=== PATIENT | female | born 1995 ===

== ENCOUNTER 2017-06-11 23:32 | Emergency (ER) | payer OTHER ==
[2017-06-12 00:25] VITALS: BP 118/86
[2017-06-12] MEDS ORDERED: MOTRIN PO ONE (05:23)
--- NOTE | 2017-06-12 05:30 | Emergency Department Report ---
ED Headache HPI - General Chief Complaint: Fever Stated Complaint: BODY PAIN Time Seen by Provider: 06/12/17 05:21 - History of Present Illness Initial Comments: 21-year-old female comes in complaining of a headache 3 days. Patient reports that she vomited on Thursday. She denies any change in vision she denies any nausea has no abdominal pains she reports a decreased appetite no fever no chills no cough no runny nose no nasal congestion no sore throat no eye drainage. Patient has no past medical history she currently takes medication does not know the names. She has no primary care provider. Allergies/Adverse Reactions: Allergies No Known Allergies Allergy (Unverified 06/12/17 00:20) Home Medications: Ambulatory Orders Ibuprofen [Motrin 600 MG tab] 600 mg PO Q8H PRN #30 tablet 06/12/17 ED Review of Systems ROS: Stated complaint: BODY PAIN Other details as noted in HPI Constitutional: denies: chills, fever Eyes: denies: eye pain, eye discharge, vision change ENT: denies: ear pain, throat pain Respiratory: denies: cough, shortness of breath, wheezing Cardiovascular: denies: chest pain, palpitations Endocrine: no symptoms reported Gastrointestinal: vomiting (1 time on Thursday), other (decreased appetite). denies: abdominal pain, nausea, diarrhea Genitourinary: denies: urgency, dysuria, discharge Musculoskeletal: denies: back pain, joint swelling, arthralgia Skin: denies: rash, lesions Neurological: denies: headache (3 days), weakness, paresthesias Psychiatric: denies: anxiety, depression Hematological/Lymphatic: denies: easy bleeding, easy bruising ED Past Medical Hx - Past Medical History Previous Medical History?: No - Surgical History Past Surgical History?: No - Social History Smoking Status: Never Smoker Substance Use Type: None - Medications Home Medications: Home Medications Medication Instructions Recorded Confirmed Last Taken Type Ibuprofen [Motrin 600 MG tab] 600 mg PO Q8H PRN #30 tablet 06/12/17 Unknown Rx ED Physical Exam - General Limitations: No Limitations General appearance: alert, in no apparent distress - Head Head exam: Present: atraumatic, normocephalic - Eye Eye exam: Present: normal appearance - ENT ENT exam: Present: mucous membranes moist - Neck Neck exam: Present: normal inspection - Respiratory Respiratory exam: Present: normal lung sounds bilaterally. Absent: respiratory distress - Cardiovascular Cardiovascular Exam: Present: regular rate, normal rhythm. Absent: systolic murmur, diastolic murmur, rubs, gallop - GI/Abdominal GI/Abdominal exam: Present: soft, normal bowel sounds - Extremities Exam Extremities exam: Present: normal inspection - Back Exam Back exam: Present: normal inspection - Neurological Exam Neurological exam: Present: alert, oriented X3 - Expanded Neurological Exam Expanded Cranial nerves: EOM's Intact: Normal, Gag Reflex: Normal, Tongue Deviation: Normal, Nystagmus: Normal, Facial Sensation: Normal, Facial Palsy with Forehead Movement: Normal, Facial Palsy without Forehead Movement: Normal Cerebellar function: Finger to Nose: Normal, Heel to Castro: Normal, Romberg: Normal Upper motor neuron: Korey Neglect: Normal, Pronator Drift: Normal Sensory exam: Upper Extremity Light Touch: Normal, Upper Extremity Pin Prick: Normal, Lower Extremity Light Touch: Normal, Lower Extremity Pin Prick: Normal Motor strength exam: RUE: 5, LUE: 5, RLE: 5, LLE: 5 Best Eye Response (Kasandra): (4) open spontaneously Best Motor Response (Kasandra): (6) obeys commands Best Verbal Response (Kasandra): (5) oriented Kasandra Total: 15 - Psychiatric Psychiatric exam: Present: normal affect - Skin Skin exam: Present: warm, dry, intact, normal color. Absent: rash ED Course Vital Signs 06/12/17 00:20 Temperature 97.3 F L Pulse Rate 86 Respiratory 18 Rate Blood Pressure 118/86 O2 Sat by Pulse 100 Oximetry ED Medical Decision Making - Medical Decision Making Patient has been evaluated by this provider fast track. I will give patient ibuprofen 600 mg. Refer patient to primary care for further evaluation. Critical care attestation.: If time is entered above; I have spent that time in minutes in the direct care of this critically ill patient, excluding procedure time. ED Disposition Clinical Impression: Headache Qualifiers: Headache type: unspecified Headache chronicity pattern: acute headache Intractability: intractable Qualified Code(s): R51 - Headache Disposition: DC-01 TO HOME OR SELFCARE Is pt being admited?: No Does the pt Need Aspirin: No Condition: Stable Instructions: Acute Headache (ED) Additional Instructions: Take pain medication as prescribed. It is very important free to follow up with her primary care provider I have listed one below. Prescriptions: Ibuprofen [Motrin 600 MG tab] 600 mg PO Q8H PRN #30 tablet PRN Reason: Pain Referrals: ANNA MOSS MD [Primary Care Provider] - 3-5 Days [facility] [Provider Group] - 3-5 Days Forms: Work/School Release Form(ED)
== END 2017-06-12 07:00 | disposition home or self-care (01) ==
LOC: ED 23:32
DX: R51 Headache (principal)
CPT/HCPCS: 99282